=== PATIENT | female | born 1965 | race Two or more races ===

== ENCOUNTER 2021-03-20 05:33 | Day surgery (SDC) | payer OTHER ==
[~2021-03-20 05:33] MED LIST: ZYRTEC10 M3 PO
== END 2021-03-22 16:19 | disposition home or self-care (01) ==
LOC: CIR.AMB 05:33
PROVIDERS: ATTEND Colon & Rectal Surgery
DX: K64.1 Second degree hemorrhoids (principal); K62.0 Anal polyp; K64.8 Other hemorrhoids; Z20.822 Contact with and (suspected) exposure to COVID-19